=== PATIENT | female | born 1935 | race Caucasian/White ===

== ENCOUNTER 2017-05-20 12:38 | Inpatient (IN) ==
--- NOTE | 2017-05-20 13:09 | Diag Imaging Result Doc PS360 ---
CHEST-PORTABLE - 05/20/2017 INDICATION: weakness TECHNIQUE: COMPARISON: 05/25/2016 FINDINGS: Stable CABG changes and valve replacement changes. Stable cardiomegaly. Pulmonary vascularity is probably somewhat distended. There are some ill-defined, coarse peripheral infiltrates compatible with either pulmonary edema or fibrosis. This has worsened since prior. IMPRESSION: Cardiomegaly. Probable pulmonary edema versus some fibrosis worsened since prior. Electronically signed by Yo Live 05/20/2017 1:07 PM
--- NOTE | 2017-05-20 13:34 | Diag Imaging Result Doc PS360 ---
HEAD/C-SPINE W/O CONTRAST - 05/20/2017 INDICATION: fall, weak, can't walk TECHNIQUE: A CT dose reduction protocol was used. COMPARISON: 05/25/2016 FINDINGS: Head CT: Stable diffuse cerebral atrophy. 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 No intracranial mass or hemorrhage. Stable complete opacification of the left maxillary sinus with chronic sinusitis. Cervical spine: There is reversal of the normal curvature. There is also some mild dextro scoliosis. No visible fracture or subluxation. Vertebral body heights are preserved. There is mild to moderate multilevel disc degeneration. No significant central canal stenosis. IMPRESSION: 1. Stable extensive chronic changes to the brain and chronic left maxillary sinusitis. No acute injury. 2. Cervical spondylosis with no evidence of acute injury to the cervical spine. Electronically signed by Yo Live 05/20/2017 1:32 PM
--- NOTE | 2017-05-20 13:41 | Diag Imaging Result Doc PS360 ---
LUMBAR SPINE W/O CONTRAST - 05/20/2017 INDICATION: weakness, fall, cant walk COMPARISON: None A CT dose reduction protocol was used. FINDINGS: There is an L1 compression fracture, with about 30% loss of height. There is probably also a minimal L4 compression fracture with less than 20% loss of height. No bony retropulsion. No central canal or neural foraminal stenosis. There is extensive multilevel degenerative disc disease with vacuum disc phenomenon. There is advanced vascular calcification of the abdominal aorta and its branches without aneurysm. There is degeneration of the sacroiliac joints as well. IMPRESSION: Mild compression fractures at L1 and L4. Advanced degenerative changes. Electronically signed by Yo Live 05/20/2017 1:38 PM
--- NOTE | 2017-05-20 13:43 | Diag Imaging Result Doc PS360 ---
PELVIS - 05/20/2017 INDICATION: fall, can't walk TECHNIQUE: COMPARISON: None FINDINGS: There is moderate degeneration of the sacroiliac joints. Hip joints are fairly well preserved. No fracture or subluxation. IMPRESSION: No acute disease. Electronically signed by Yo Live 05/20/2017 1:40 PM
--- NOTE | 2017-05-20 14:01 | PROVIDER DOCUMENTATION ---
HPI-General Adult - General Chief Complaint: Weakness Stated Complaint: weakness Time Seen by Provider: 05/20/17 12:40 Source: patient, family Allergies/Adverse Reactions: Patient Allergies Allergy/AdvReac Type Severity Reaction Status Date / Time ciprofloxacin [From Cipro] Allergy ANAPHYLAXIS Verified 05/20/17 13:55 ciprofloxacin HCl * Allergy ANAPHYLAXIS Verified 05/20/17 13:55 [From Cipro] codeine Allergy ANAPHYLAXIS Verified 05/20/17 13:55 Home Medications: Home Medication List Medication Instructions Recorded Confirmed Last Taken Type Amiodarone HCl [Pacerone] 200 mg PO DAILY 05/25/16 05/20/17 05/25/16 History Aspirin [Aspirin EC] 81 mg PO DAILY 05/25/16 05/20/17 05/25/16 History Famotidine [Pepcid] 20 mg PO DAILY 05/25/16 05/20/17 05/25/16 History Iron Carbonyl/Ascorbic Acid 1 each PO DAILY 05/25/16 05/20/17 05/25/16 History [Icar-C] Isosorbide Mononitrate [Isosorbide 30 mg PO DAILY 05/25/16 05/20/17 05/25/16 History Mononitrate ER] Levothyroxine Sodium [Synthroid] 88 mcg PO DAILY 05/25/16 05/20/17 05/25/16 History Metoprolol Tartrate [Lopressor] 100 mg PO BID 05/25/16 05/20/17 05/25/16 History Oxybutynin E.r. [Ditropan Xl] 5 mg PO DAILY 05/25/16 05/20/17 05/25/16 History SIMVAstatin [Zocor] 40 mg PO QHS 05/25/16 05/20/17 05/25/16 History Sertraline [Zoloft] 50 mg PO DAILY 05/25/16 05/20/17 05/25/16 History [place]/Sod Phos/Meth Blue/Hyos 1 each PO TID 05/20/17 05/20/17 Unknown History [Urogesic-Blue Tablet] Sulfamethoxazole/Trimethoprim 1 each PO BID 05/20/17 05/20/17 Unknown History [Bactrim Ds Tablet] - History of Present Illness -Gen Adult Nature of Presenting Problems: pt presents complaining of generalized weakness, inability to ambulate, inability to perform ADLs. She lives at home alone. Reportedly pt fell yesterday but does not recall this. EMS came out but she refused transport. She has no focal complaint. Reportedly, pt was told to drink Gatorade and has been doing this. She denies headache, back pain, leg pain, cp, dyspnea, fever, cough. Location of Pain/Injury: reports: none Pain Radiation: reports: no radiation Quality of Pain: reports: none Onset/Duration: reports: 2 days ago Timing: reports: still present Context/Activities at Onset: reports: none Modifying Factors: improves with: nothing Associated Symptoms: reports: fatigue, weakness, trouble walking. denies: arm pain, chest pain, cough, dizziness, fever/chills, headaches, joint pain, nausea , shortness of breath, pain with inspiration, syncope, vomiting Similar Symptoms Previously?: No Recently seen or treated by another doctor?: No Review of Systems - Adult - REVIEW OF SYSTEMS - ADULT Constitutional: reports: see john BARAHONA Eyes: reports: no symptoms reported Ears, Nose, Mouth & Throat: reports: no symptoms reported Cardiovascular: reports: no symptoms reported Respiratory: reports: no symptoms reported Gastrointestinal: reports: no symptoms reported Genitourinary: reports: no symptoms reported Musculoskeletal: reports: muscle weakness Integumentary: reports: no symptoms reported Neurological: reports: no symptoms reported Psychiatric: reports: no symptoms reported Endocrine: reports: no symptoms reported Hematologic/Lymphatic: reports: no symptoms reported Allergic/Immunologic: reports: no symptoms reported All Other Systems: Reviewed and Negative Past History - Adult - PAST MEDICAL HISTORY-ADULT Review of Records: reports: Old Records Reviewed, Nursing Assessment Review, Medications Reviewed, Social history reviewed & non-contributory. Major Childhood Illnesses: reports: denies history Cardiovascular: reports: A-Fib, CHF, HTN Respiratory: reports: denies history Gastrointestinal: reports: denies history Obstetrical/Gynecological: reports: denies history Genitourinary: reports: denies history Musculoskeletal: reports: denies history Neurological: reports: denies history Psychiatric: reports: depression Endocrine/Immune: reports: Diabetes Other Conditions: reports: denies history - PRIOR SURGERIES/PROCEDURES Surgical/Procedure History: reports: other (valve replacement) - IMMUNIZATION STATUS Childhood Immunizations: See Nurse Assessment Flu Vaccine: See Nurse Assessment - FAMILY HISTORY Family History: reviewed, not pertinent Physical Exam-General - PHYSICAL EXAM-ADULT Initial Vital Signs Reviewed: Yes - CONSTITUTIONAL General Appearance: appears well, alert, no apparent distress - EYES Eyes: PERRL/EOMI, pink conjunctivae - HEAD, EARS, NOSE, MOUTH & THROAT HENMT: normocephalic/atraumatic - NECK Neck: non-tender, full range of motion - RESPIRATORY Respiratory: chest non-tender, lungs clear, decreased breath sounds - CARDIOVASCULAR Cardiovascular: normal peripheral pulses, regular rate, rhythm, other (mild nonpitting to LE) - GASTROINTESTINAL (ABDOMEN) Abdominal Exam: normal bowel sounds, non tender, soft - LYMPHATIC Lymphatic: no adenopathy - MUSCULOSKELETAL Back Exam: normal inspection, no vertebral tenderness Extremity: pedal edema (mild, non-pitting.), other (good heal to disla bilateral but pain in right hip). negative: no calf tenderness Peripheral Pulses: femoral (R): 2+, femoral (L): 2+, dorsalis-pedis (R): 2+, dorsalis-pedis (L): 2+ - SKIN Integumentary: normal color, normal turgor, warm/dry - NEUROLOGIC Neurologic: grossly normal. negative: facial droop, focal weakness - PSYCHIATRIC Psych/Mental Status: normal mood/affect, oriented x 3 Progress - PLAN OF CARE/RESULTS Progress/Plan/Lab Results: Vital Signs - 8 hr 05/20/17 13:00 Pulse Rate 62 Respiratory Rate 16 Blood Pressure 184/86 O2 Sat by Pulse Oximetry 92 L Orders Category Date Time Status Cardiac Monitoring DIRECTED Care 05/20/17 12:54 Active Saline Loc NOW Care 05/20/17 12:54 Active CHEST-PORTABLE [RAD] Stat Exams 05/20/17 12:54 Completed HEAD/C-SPINE W/O CONTRAST [CT] Stat Exams 05/20/17 12:54 Completed LUMBAR SPINE W/O CONTRAST [CT] Stat Exams 05/20/17 12:54 Completed PELVIS [RAD] Stat Exams 05/20/17 13:01 Completed CBC WITH ELECTRONIC DIFF [HEME] Stat Lab 05/20/17 13:52 Results CK PROFILE [SP CHEM] Stat Lab 05/20/17 13:52 Received COMPREHENSIVE METABOLIC PANEL [CHEM] Stat Lab 05/20/17 13:52 Received MAGNESIUM [CHEM] Stat Lab 05/20/17 13:52 Received PRO B-NATRIURETIC PEPTIDE Stat Lab 05/20/17 13:52 Received PROTIME WITH INR [COAG] Stat Lab 05/20/17 13:52 Received PTT [COAG] Stat Lab 05/20/17 13:52 Received TROPONIN T Stat Lab 05/20/17 13:52 Received UA NIMS W/REFLEX CULT [URINALYSIS] Stat Lab 05/20/17 12:54 Uncollected EKG [EKG] Stat Ther 05/20/17 12:54 Ordered case and plan of care discussed with Dr. Encinas. Result Diagrams: 05/20/17 13:52 05/20/17 13:52 - XRAY 1 XRAY Study: Chest Impression: See EMR Report XRAY Interpretation: cardiomegaly c edema vs fibrosis per radiology. 2 XRAY Study: Pelvis Impression: See EMR Report XRAY Interpretation: NAF per radiologist. - CT/MRI 1 CT Study: Head CT Results: NAF per radiologist 2 CT Study: Neck Impression: See EMR Report CT Results: NAF per radiologist. 3 CT Study: Lumbar Spine CT Results: L1/L4 compression fractures per radiologist. - CONSULTS/PCP/HOSPITALIST Notification #1 *Consult/PCP/Hospitalist*: Dr. Torres Time Discussed: 15:21 Consult Disposition: Admit Departure - Departure Date of Disposition Decision: 05/20/17 Time of Disposition Decision: 15:19 DIAGNOSIS: Unable to ambulate, Compression fracture CHF exacerbation Qualifiers: Congestive heart failure type: unspecified congestive heart failure type Qualified Code(s): I50.9 - Heart failure, unspecified Disposition: ADMITTED INPATIENT 09 Certified Medical Emergency: Emergent Condition: Stable Referrals and Follow-Ups: Roman Fiore MD [Primary Care Provider] - - Critical Care Note This patient required my direct & personal management of CC.: No Attestation - Physician/ NISA Attestation Patient care was provided by Advanced Practice Provider:: Yes Advanced Practice Provider:: Rohit Smith Advanced Practice Provider documentation review:: The Mid-level provider documentation, treatment plan and medical decision making was reviewed by the physician who agrees with all treatment and medical decision making by the MLP.
[2017-05-20 14:10] LABS: BASO% 0.2 % (0.0-0.8); EOS# 0.04 X1000 (0.0-0.7); EOS% 0.4 % (0.0-10.0); HEMOGLOBIN 11.9 g/dL (12.0-16.0); LYMPH# 0.73 X1000 (1.2-3.4); LYMPH% 7.3 % (20.5-51.1); MCH 37.2 PG (27-31); MCHC 33.1 g/dL (33-37); MCV 112.5 FL (81-99); MONO# 0.96 X1000 (0.11-0.59); MONO% 9.6 % (1.7-9.3); MPV 11.8 FL (7.4-10.4); NEUT% 82.5 % (42.2-75.2); PLT 234 X1000 (130-400)
[2017-05-20 14:11] LABS: MANUAL DIFF NEEDED? NO
[2017-05-20 14:17] LABS: INR 0.96
[2017-05-20 14:26] LABS: URINE CULTURE NEEDED? NO; URINE MICRO REVIEW NEEDED? NO; URINE SOURCE CLEAN CATCH
[2017-05-20 14:33] LABS: ALBUMIN 4.2 g/dL (3.5-5.0); CALCIUM 9.3 mg/dL (8.8-10.2); POTASSIUM 4.6 mmol/L (3.5-5.1); TOTAL BILIRUBIN 0.73 mg/dL (0.20-1.00); TOTAL PROTEIN 7.1 g/dL (6.3-8.3)
[2017-05-20 14:36] LABS: BILIRUBIN URINE NEGATIVE (NEGATIVE); BLOOD URINE NEGATIVE (NEGATIVE); COLOR GREEN; GLUCOSE URINE NEGATIVE (NEGATIVE); LEUKOCYTES URINE NEGATIVE (NEGATIVE); NITRITE URINE NEGATIVE (NEGATIVE); PH URINE 5.5; PROTEIN URINE NEGATIVE (NEGATIVE); SP GRAVITY URINE 1.011; TURBIDITY URINE CLEAR (CLEAR); UROBILINOGEN URINE NORMAL (NORMAL)
[2017-05-20 14:37] LABS: UR EPITHELIAL CELLS <10 /HPF (<10); URINE BACTERIA NEGATIVE /HPF; URINE RBC <10 /HPF (<10); URINE WBC <10 /HPF (<10)
--- NOTE | 2017-05-20 14:54 | EKG Report ---
Test Performed on : 05/20/2017 1:48:42 PM Test Reason : Chest Pain Blood Pressure : / mmHG Vent. Rate : 069 BPM Atrial Rate : 069 BPM P-R Int : 270 ms QRS Dur : 100 ms QT Int : 448 ms P-R-T Axes : 078 105 -03 degrees QTc Int : 480 ms Sinus rhythm. with 1st degree AV block. Rightward axis Nonspecific ST and T wave abnormality Abnormal ECG When compared with ECG of 25-MAY-2016 21:00, No significant change was found Unconfirmed Result
[2017-05-20 15:08] LABS: CK INDEX 1.9 (0.0-2.5); CK-MB 4.68 ng/mL (0.0-5.0)
[2017-05-20] MEDS ORDERED: LASIX IV ONE (15:17)
[2017-05-20] MEDS ORDERED: ZOFRAN IV PRN (16:02)
--- NOTE | 2017-05-20 18:14 | HISTORY AND PHYSICAL ---
CHIEF COMPLAINT: Lower extremity weakness and shortness of breath with physical activity. HISTORY OF PRESENT ILLNESS: This is an 82-year-old female with a past medical history of coronary artery disease status post CABG, CKD, hypertension, CHF diastolic, possible history of atrial fibrillation, diabetes, chronic UTI, hyperlipidemia, hypothyroidism, osteoarthritis. She came to the emergency department with a chief complaint of severe lower extremity weakness for the past 3 days and shortness of breath with physical activity. As per the patient, 4 days ago she was fine and then she started having lower extremity weakness that was progressive. She denies nausea, vomiting, diarrhea, constipation. No chest pain. No fever. No chills. She had multiple x-rays and also a lumbar CT-spine that showed an L1 and mild compression fracture. Probably this is old. She is not complaining of lumbar spinal pain. She has no history of dementia. Apparently this patient fell yesterday but she is not sure. She lives by herself. Her daughter and one of her friends lives very close to her house. Laboratory shows hemoglobin of 11.9 with MCV of 112. Also, creatinine 1.5 and proBNP of 1369. Back in 2016 it was 2988. This patient will be admitted to the medical floor with telemetry. I will get a new echocardiogram. I will start with gentle diuresis and continue with her home medications. PAST MEDICAL HISTORY: Degenerative joint disease, hypothyroidism, hyperlipidemia, hypertension, chronic UTI, diabetes mellitus type 2, CHF, possible atrial fibrillation, CKD, coronary artery disease status post CABG. PAST SURGICAL HISTORY: CABG and carotid surgery on the right side. SOCIAL HISTORY: She is an ex-smoker. She stopped smoking in 1998. She smoked for 15 years about half pack. She lives alone. She has a feeder 2 times per week. Her her daughter and her friend are checking on her really closely. She denies alcohol or drugs. FAMILY HISTORY: Noncontributory. ALLERGIES: The patient has an allergy to Cipro and codeine, and apparently that causes anaphylaxis but she is not sure. HOME MEDICATIONS: Sertraline 50 mg p.o. daily, simvastatin 40 mg p.o. at bedtime, oxybutynin 5 mg p.o. daily, metoprolol tartrate 100 mg p.o. b.i.d., tablet 1 tablet p.o. t.i.d., levothyroxine 88 mcg p.o. daily, isosorbide mononitrate 30 mg p.o. daily, Icar-C 1 tab p.o. daily, famotidine 20 mg p.o. daily, aspirin 81 mg p.o. daily, amiodarone 200 mg p.o. daily. REVIEW OF SYSTEMS: All 14 point review of systems were reviewed and were negative except as per HPI. PHYSICAL EXAMINATION: VITAL SIGNS: Pulse 62, respiratory rate 16, blood pressure 184/86, oxygen saturation 92 on room air. HEENT: Head normocephalic. No trauma. PERRLA. NECK: Supple. No JVD. No masses. Central trachea. CHEST: Decreased breath sounds at the bases with rales and mild crackles. ABDOMEN: Soft, nontender, nondistended. No hepatosplenomegaly. CARDIOVASCULAR: Regular rate and rhythm. No murmurs. EXTREMITIES: 1+ lower extremity edema. No clubbing. No cyanosis. NEUROLOGICAL EXAMINATION: The patient is alert and oriented x3. No focal neurological deficits. LABORATORY: WBC 10, hemoglobin 11.9, hematocrit 36, platelets 234,000. Sodium 136, potassium 4.6, chloride 103, bicarbonate 20, BUN 16, creatinine 1.5, glucose 100, calcium 9.3, magnesium 2. AST 35, ALT 27, alkaline phosphatase 66, proBNP 11,369, albumin 4.2. Negative urinalysis. ASSESSMENT AND PLAN: 1. Congestive heart failure exacerbation. She already received a dose of Lasix in the ER. I will start this patient with a low dose of Lasix, 20 IV daily. I will monitor the kidney function. Also I will ask for physical therapy for this patient. 2. Hypertension. I will restart this patient on her home medications and I will monitor. 3. Chronic kidney disease. Her creatinine is 1.5 and this is her baseline compared with 2016. 4. Coronary artery disease status post coronary artery bypass graft. Aware. Continue to monitor. No chest pain at this moment. 5. Hyperlipidemia. Continue with the same management. 6. Hypothyroidism. Continue with Synthroid. 7. Type 2 diabetes. I will put this patient on sliding scale insulin and pattern blood sugar. 8. Physical deconditioning. I will consult Physical Therapy for evaluation. cc: Jesus Suarez MD
[2017-05-20] MEDS: LOPRESSOR PO SCH (21:04)
[2017-05-20] MEDS: HEPARIN SUBQ SCH ×2 (21:04→21:06)
[2017-05-20] MEDS: HUMULIN R SUBQ SCH (21:04)
[2017-05-20] MEDS: ZOCOR PO SCH (21:04)
[2017-05-21 06:30] LABS: BASO% 0.1 % (0.0-0.8); EOS# 0.19 X1000 (0.0-0.7); EOS% 2.3 % (0.0-10.0); HEMATOCRIT 33.3 % (37.0-47.0); HEMOGLOBIN 10.9 g/dL (12.0-16.0); IMM GRAN# 0.02 X1000 (0.0-0.04); IMM GRAN% 0.2 % (0.0-0.5); LYMPH# 0.65 X1000 (1.2-3.4); LYMPH% 7.7 % (20.5-51.1); MANUAL DIFF NEEDED? YES; MCH 36.3 PG (27-31); MCHC 32.7 g/dL (33-37); MONO# 1.06 X1000 (0.11-0.59); MONO% 12.6 % (1.7-9.3); MPV 11.7 FL (7.4-10.4); NEUT% 77.1 % (42.2-75.2); PLT 209 X1000 (130-400)
[2017-05-21 06:39] LABS: ALBUMIN 3.5 g/dL (3.5-5.0); CALCIUM 8.9 mg/dL (8.8-10.2); POTASSIUM 4.7 mmol/L (3.5-5.1); TOTAL BILIRUBIN 0.55 mg/dL (0.20-1.00)
[2017-05-21] MEDS: HUMULIN R SUBQ SCH ×4 (07:43→21:44)
[2017-05-21 07:54] LABS: BANDS 10 % (0-1); LYMPHS 4 % (21-51); MONO 6 % (1-9); NRBC 1 % (0-0)
[2017-05-21] MEDS: ICAR-C PO SCH (08:33)
[2017-05-21] MEDS: DITROPAN XL PO SCH (08:33)
[2017-05-21] MEDS: LOPRESSOR PO SCH ×2 (08:34→21:44)
[2017-05-21] MEDS: SYNTHROID PO SCH (08:34)
[2017-05-21] MEDS: IMDUR PO SCH (08:34)
[2017-05-21] MEDS: ZOLOFT PO SCH (08:34)
[2017-05-21] MEDS: CORDARONE PO SCH (08:34)
[2017-05-21] MEDS: HEPARIN SUBQ SCH ×2 (08:34→21:44)
[2017-05-21] MEDS: ASPIRIN EC PO SCH (08:34)
[2017-05-21] MEDS: PEPCID PO SCH (08:34)
[2017-05-21] MEDS ORDERED: LASIX IV SCH (09:00)
--- NOTE | 2017-05-21 11:21 | PROGRESS NOTE ---
DATE: 05/21/2017 SUBJECTIVE: The patient reports she is feeling some improved since admission regarding her shortness of breath. She denies any additional symptoms or overnight complaints. OBJECTIVE: Vital Signs: Temperature 98.3 degrees, pulse 60, respirations 18, blood pressure 109/60, O2 saturation 96% on 4L per nasal cannula. HEENT: Normocephalic, atraumatic. Mucous membranes slightly moist. Neck: Supple. No JVD. Chest: Bilateral breath sounds with mild crackles in the bases. Otherwise, normal. No accessory muscle use noted. Cardiovascular: Normal S1 and S2. Abdomen: Soft, nontender, nondistended. Positive bowel sounds. Extremities: Trace amount of edema. Neurologic: Patient is alert and oriented x4. No neurological deficits noted. LABORATORIES AND DIAGNOSTICS: CBC: Her hemoglobin and hematocrit are 10.9 and 33.3, slightly lower than on admission. BMP: Sodium 144, potassium 4.7, chloride 109, CO2 of 22, BUN 17, creatinine 1.5. I's and O's: In the last 24 hours, she has had 1100 output with [address] orders for daily weights. ASSESSMENT AND PLAN: 1. Congestive heart failure exacerbation. With her history of chronic kidney disease, she is on low-dose Lasix IV daily that we have been initiated and will continue with diuresis. She does seem to be slightly improved since admission. We will continue to follow her kidney function, as well, and daily weights as well as strict I and O evaluation. Discussed with the patient also sodium restriction and fluid restriction. 2. Anemia. Have placed an anemia panel to evaluate for causes. This could be related to her chronic kidney disease, however. 3. Hypertension. Stable. We will continue to follow and continue her home medications. 4. Chronic kidney disease. We will continue to follow and appears to be at baseline, but will watch closely with diuresis. 5. Coronary artery disease, status post coronary artery bypass graft. Aware. We will continue to monitor. She is asymptomatic regarding this. We will continue her home medications. 6. Hyperlipidemia. We will continue her medications. 7. Hypothyroidism. Stable. Continue Synthroid. 8. Type 2 diabetes. This is stable. We will continue pattern blood sugars and sliding scale insulin. 9. Physical deconditioning. Physical Therapy has been consulted. Further orders pending physician evaluation. Dictated by ATIF Gao for Jesus Suarez MD cc: ATIF Gao MD
--- NOTE | 2017-05-21 13:48 | ECHO REPORT ---
ORDER DATE: 05/20/2017 INDICATIONS: Fatigue, weakness, CHF. FINDINGS: 1. Right atrium is moderately enlarged at 5.2 cm. 2. Mild tricuspid regurgitation. RV systolic pressure of 62, suggesting pulmonary hypertension. 3. The right ventricle does appear to be somewhat enlarged with mild reduction in RV systolic function. 4. Mild pulmonic insufficiency. 5. Moderate left atrial enlargement at 5.1 cm. 6. There is a moderate amount of mitral annular calcification with no evidence of mitral valve prolapse. Mild mitral regurgitation. 7. Normal LV size, end-diastolic dimension of 4 cm. There is bordering on moderate to severe left ventricular hypertrophy. Posterior wall thickness appears to be 1.7 cm with an interventricular septal wall thickness of 1.3 cm. Normal LV systolic function with a calculated EF of 64%. 8. Aortic valve opens well. It is trileaflet. No evidence of stenosis or significant insufficiency. 9. Aorta appears normal in visualized segments. 10. No pericardial effusion seen. cc: MD Jesus Galicia MD
[2017-05-21] MEDS: TYLENOL PO PRN (17:15)
[2017-05-21] MEDS: ZOCOR PO SCH (21:44)
[2017-05-22 06:40] LABS: HEMATOCRIT 33.2 % (37.0-47.0); HEMOGLOBIN 10.7 g/dL (12.0-16.0); MCH 37.2 PG (27-31); MCHC 32.2 g/dL (33-37); MCV 115.3 FL (81-99); MPV 11.7 FL (7.4-10.4); RBC 2.88 XMIL (4.2-5.4)
[2017-05-22 06:56] LABS: CALCIUM 8.8 mg/dL (8.8-10.2); POTASSIUM 4.5 mmol/L (3.5-5.1)
[2017-05-22 07:07] LABS: FERRITIN 373 ng/mL (13-150)
[2017-05-22] MEDS: HUMULIN R SUBQ SCH ×4 (07:33→20:36)
[2017-05-22] MEDS: CORDARONE PO SCH (10:25)
[2017-05-22] MEDS: ICAR-C PO SCH (10:25)
[2017-05-22] MEDS: PEPCID PO SCH (10:25)
[2017-05-22] MEDS: DITROPAN XL PO SCH (10:25)
[2017-05-22] MEDS: SYNTHROID PO SCH (10:25)
[2017-05-22] MEDS: ZOLOFT PO SCH (10:26)
[2017-05-22] MEDS: IMDUR PO SCH (10:26)
[2017-05-22] MEDS: ASPIRIN EC PO SCH (10:26)
[2017-05-22] MEDS: LOPRESSOR PO SCH ×2 (10:26→22:20)
[2017-05-22] MEDS: HEPARIN SUBQ SCH ×2 (10:26→22:20)
[2017-05-22] MEDS: FOLIC ACID PO SCH (10:28)
[2017-05-22] MEDS: LASIX PO SCH (10:29)
--- NOTE | 2017-05-22 11:57 | PROGRESS NOTE ---
DATE: 05/22/2017 SUBJECTIVE: Patient reports continued weakness. She denies any other complaints or symptoms today. OBJECTIVE: Vital Signs: Temperature 97.8 degrees, pulse 56, respirations 16, blood pressure 153/48, O2 saturation 96% on 2 L per nasal cannula. HEENT: Normocephalic, atraumatic. Mucous membranes slightly moist. Neck: Supple. No JVD. Chest: Bilateral breath sounds clear. Respirations unlabored. No accessory muscle use noted. Cardiovascular: Normal S1 and S2. Abdomen: Abdomen is soft, nontender, nondistended. Positive bowel sounds. Extremities: Trace amount of edema. Neurologic: The patient is alert and oriented x4. No neurological deficits noted. Laboratories and Diagnostics: CBC: Hemoglobin and hematocrit are 10.7 and 33.2 today. BMP: Sodium 138, potassium 4.5, chloride 104, CO2 23, BUN 21, creatinine 1.9, glucose 108. With her anemia panel, her iron was within normal limits, her folate was low at 5.5, and her B12 was 576. ProBNP was 2258, which is improved from prior. ASSESSMENT AND PLAN: 1. Congestive heart failure exacerbation. With her history of chronic kidney disease and improvement of her proBNP and symptoms, we will switch patient from intravenous Lasix to oral, and continue to follow. She has been improving with this and feels she will likely be appropriate to go to rehab soon. 2. Folate deficiency anemia. We will go ahead and initiate folate with her medications. 3. Hypertension. This is stable. 4. Chronic kidney disease. We have been following this with diuresis. Her creatinine has increased slightly today. We will go ahead and switch her to oral Lasix instead of intravenous. 5. Coronary artery disease, status post coronary artery bypass graft. Aware. She is asymptomatic regarding this. 6. Type 2 diabetes. This is stable. 7. Physical deconditioning. Physical therapy has been consulted. Spoke with the patient in detail today about possibly going to rehab. The patient had questions regarding this but does also feel this would help improve her weakness and get her back to her preadmission activity level. 8. Discharge planning. Feel patient would probably be appropriate for discharge possibly tomorrow if can work out with rehab a bed for her and if her conditions continued to improve. She may also need home health long-term. Further orders pending physician evaluation. Dictated by ATIF Gao for Jesus Suarez MD cc: ATIF Gao MD
[2017-05-22] MEDS: TYLENOL PO PRN (15:48)
[2017-05-22] MEDS: ZOCOR PO SCH (22:20)
[2017-05-23] MEDS: HUMULIN R SUBQ SCH ×4 (06:36→21:29)
[2017-05-23 06:56] LABS: HEMATOCRIT 34.1 % (37.0-47.0); HEMOGLOBIN 11.1 g/dL (12.0-16.0); MCH 36.5 PG (27-31); MCHC 32.6 g/dL (33-37); MCV 112.2 FL (81-99); MPV 11.8 FL (7.4-10.4); RBC 3.04 XMIL (4.2-5.4)
[2017-05-23 07:16] LABS: CALCIUM 9.2 mg/dL (8.8-10.2); POTASSIUM 4.6 mmol/L (3.5-5.1)
[2017-05-23] MEDS: ASPIRIN EC PO SCH (08:24)
[2017-05-23] MEDS: PEPCID PO SCH (08:24)
[2017-05-23] MEDS: CORDARONE PO SCH (08:24)
[2017-05-23] MEDS: IMDUR PO SCH (08:24)
[2017-05-23] MEDS: SYNTHROID PO SCH (08:24)
[2017-05-23] MEDS: LOPRESSOR PO SCH ×2 (08:24→20:11)
[2017-05-23] MEDS: LASIX PO SCH (08:24)
[2017-05-23] MEDS: ICAR-C PO SCH (08:24)
[2017-05-23] MEDS: HEPARIN SUBQ SCH ×2 (08:25→20:09)
[2017-05-23] MEDS: FOLIC ACID PO SCH (08:25)
[2017-05-23] MEDS: DITROPAN XL PO SCH (08:25)
[2017-05-23] MEDS: ZOLOFT PO SCH (08:26)
--- NOTE | 2017-05-23 09:55 | EKG Report ---
Test Performed on : 05/20/2017 5:46:48 PM Test Reason : ED. Not ordered in [place] Blood Pressure : / mmHG Vent. Rate : 066 BPM Atrial Rate : 066 BPM P-R Int : 258 ms QRS Dur : 106 ms QT Int : 478 ms P-R-T Axes : 071 091 023 degrees QTc Int : 501 ms Sinus rhythm. with 1st degree AV block. Rightward axis Prolonged QT Abnormal ECG When compared with ECG of 20-MAY-2017 13:48, (Unconfirmed) No significant change was found Unconfirmed Result
--- NOTE | 2017-05-23 09:55 | PROGRESS NOTE ---
DATE: 05/23/2017 SUBJECTIVE: This patient states that she is feeling much better. She is still reporting weakness. She denies any other symptoms. OBJECTIVE: Vital Signs: Temperature 97.5 degrees, pulse 56, respiratory rate 16, blood pressure 128/46. Oxygen saturation 99 on room air. HEENT: Head normocephalic. No trauma. PERRLA. Neck: Supple. No JVD. No masses. Central trachea. Chest: Clear to auscultation. No wheezing. No rales. Abdomen: Soft, nontender, nondistended. No hepatosplenomegaly. Extremities: Trace edema. No clubbing. No cyanosis. Neurological Examination: The patient is alert and oriented x3. No focal deficits. Laboratory: WBC 6.7, hemoglobin 11.1, hematocrit 34.1, platelets 218,000. Sodium 141, potassium 4.6, chloride 103, bicarbonate 26, BUN 22, creatinine 1.5, glucose 103, calcium 9.2. ASSESSMENT AND PLAN: 1. Congestive heart failure exacerbation. I switched the intravenous Lasix to oral Lasix yesterday. The kidney function is stable. She is still improving. I do believe this patient can be discharged but she needs to go to a rehab center. I already talked to the patient and she agreed with this. She is 82 years old and she lives alone. 2. Macrocytic anemia, likely secondary to folate deficiency. These was initiated yesterday as well. 3. Hypertension, stable. 4. Chronic kidney disease. This is her baseline. Continue with the same management. 5. Coronary artery disease, status post coronary artery bypass graft. Aware. She is asymptomatic regarding this. 6. Type 2 diabetes, stable. 7. Physical deconditioning. Physical therapy on board. I already talked to the patient and she is going to a rehab center once this is available. cc: Jesus Suarez MD
[2017-05-23] MEDS: ZOCOR PO SCH (20:11)
[2017-05-24 06:54] LABS: CALCIUM 8.5 mg/dL (8.8-10.2); POTASSIUM 4.6 mmol/L (3.5-5.1)
[2017-05-24] MEDS: HUMULIN R SUBQ SCH ×4 (07:49→21:45)
[2017-05-24] MEDS: ZOLOFT PO SCH (08:48)
[2017-05-24] MEDS: DITROPAN XL PO SCH (08:48)
[2017-05-24] MEDS: SYNTHROID PO SCH (08:48)
[2017-05-24] MEDS: PEPCID PO SCH (08:48)
[2017-05-24] MEDS: ICAR-C PO SCH (08:48)
[2017-05-24] MEDS: ASPIRIN EC PO SCH (08:48)
[2017-05-24] MEDS: CORDARONE PO SCH (08:49)
[2017-05-24] MEDS: FOLIC ACID PO SCH (08:49)
[2017-05-24] MEDS: IMDUR PO SCH (08:49)
[2017-05-24] MEDS: LOPRESSOR PO SCH ×2 (08:49→20:02)
[2017-05-24] MEDS: LASIX PO SCH (08:49)
[2017-05-24] MEDS: HEPARIN SUBQ SCH ×3 (08:49→20:01)
[2017-05-24] MEDS ORDERED: BLISTEX MEDICATED BERRY LIP BALM TOP PRN (11:24)
--- NOTE | 2017-05-24 15:15 | PROGRESS NOTE ---
DATE: 05/24/2017 SUBJECTIVE: This patient states that she is feeling much better. She is still reporting weakness. No acute events overnight. OBJECTIVE: Vital Signs: Temperature 98 degrees, pulse 58, respiratory rate 15, blood pressure 132/48, oxygen saturation 95% on 2 L of nasal cannula. HEENT: Head normocephalic. No trauma. PERRLA. Neck: Supple. No JVD. No masses. Central trachea. Chest: Clear to auscultation. No wheezing. No rales. Abdomen: Soft, nontender, nondistended. No hepatosplenomegaly. Extremities: No edema. No clubbing. No cyanosis. Neurological: The patient is alert and oriented x3. No focal deficits. LABORATORY: Sodium 141, potassium 4.6, chloride 106, bicarbonate 24, BUN 26, creatinine 1.2, glucose 120, calcium 8.5. ASSESSMENT AND PLAN: 1. Congestive heart failure exacerbation, likely diastolic in a patient with pulmonary hypertension. Continue with Lasix low dose daily. She is ready to be discharged. We are waiting for placement because this patient is weak. 2. Macrocytic anemia. Likely secondary to folate deficiency. Folic acid was initiated a couple days ago. We will continue to monitor. 3. Hypertension, stable. 4. Chronic kidney disease. This is her baseline. Continue with the same management. 5. Coronary artery disease status post coronary artery bypass graft, aware. She is asymptomatic regarding this. 6. Type 2 diabetes. Stable. 7. Physical deconditioning. Physical therapy is on board. I already talked to the patient and she is going to a rehab center once this is available. cc: Jesus Suarez MD
[2017-05-24] MEDS: TEARISOL OPH SOLUTION BOTH EYES SCH ×3 (17:34→20:03)
[2017-05-24] MEDS: TYLENOL PO PRN (20:02)
[2017-05-24] MEDS: ZOCOR PO SCH (20:02)
[2017-05-25 06:13] VITALS: BP 125/41
[2017-05-25] MEDS: HUMULIN R SUBQ SCH ×2 (06:16→11:34)
[2017-05-25] MEDS: HEPARIN SUBQ SCH ×2 (09:58→10:07)
[2017-05-25] MEDS: DITROPAN XL PO SCH (09:59)
[2017-05-25] MEDS: LOPRESSOR PO SCH (09:59)
[2017-05-25] MEDS: LASIX PO SCH (09:59)
[2017-05-25] MEDS: ICAR-C PO SCH (09:59)
[2017-05-25] MEDS: IMDUR PO SCH (09:59)
[2017-05-25] MEDS: ZOLOFT PO SCH (09:59)
[2017-05-25] MEDS: CORDARONE PO SCH (09:59)
[2017-05-25] MEDS: FOLIC ACID PO SCH (09:59)
[2017-05-25] MEDS: ASPIRIN EC PO SCH (09:59)
[2017-05-25] MEDS: SYNTHROID PO SCH (09:59)
[2017-05-25] MEDS: PEPCID PO SCH (09:59)
[2017-05-25] MEDS: TEARISOL OPH SOLUTION BOTH EYES SCH ×2 (10:00→14:16)
--- NOTE | 2017-05-25 11:06 | DISCHARGE SUMMARY ---
ADMISSION DATE: 05/20/2017 DISCHARGE DATE: 05/25/2017 CONSULTATIONS: None. PERTINENT PROCEDURES: 1. Cervical spine CT showed stable extensive chronic changes to the brain and chronic left maxillary sinusitis. No acute injury. Cervical spondylosis with no evidence of acute injury to the cervical spine. 2. Echocardiogram showed an EF of 64%. 3. Hip/pelvis x-ray showed no acute disease. 4. Lumbar spine CT showed mild compression fractures at the L1 and L4 with advanced degenerative changes. DISCHARGE DIAGNOSES: 1. Congestive diastolic heart failure exacerbation with pulmonary hypertension. Improved. 2. Microcytic anemia secondary to folate deficiency. Continue with folic acid. 3. Hypertension, stable. 4. Chronic kidney disease. The patient is at her baseline. 5. Coronary artery disease status post coronary artery bypass graft, aware and stable. 6. Type 2 diabetes. Stable. 7. Physical deconditioning. Patient is being discharged to rehabilitation. HOSPITAL COURSE: Ms. Martin is an 82-year-old female, who has had a past medical history of coronary artery disease status post CABG, CKD, hypertension, CHF diastolic, diabetes mellitus, chronic UTI, hyperlipidemia, hypothyroidism, osteoarthritis, who came to the ED with a chief complaint of severe lower extremity weakness for 3 days, shortness of breath with physical activity. Laboratory data showed a hemoglobin of 11, MCV of 112, creatinine 1.5, a proBNP of 1369. She was admitted for diastolic congestive heart failure exacerbation and started on gentle diuresis and continued on her home medications. She was placed on daily weights, as well as strict I's and O's and discussed education about sodium restriction and fluid restriction. Physical therapy was consulted for her physical deconditioning. They suggested rehabilitation. The patient was switched from IV to p.o. Lasix. Her shortness of breath has greatly improved. However, she still reports weakness. She will be discharged to rehab today. VITAL SIGNS: Temperature is 97.7 degrees, heart rate 50, respirations 16, blood pressure 125/41 and O2 is 96%. DISCHARGE DIET: Diabetic. DISCHARGE MEDICATIONS: As per Dr. Torres. Please see MAR. FOLLOWUP: The patient is being discharged to [facility], where she will continue with daily weights and strict I's and O's. I also educated the patient on sodium restriction, as well as fluid restriction in relation to her heart failure. The patient can return to the ED for any worsening of symptoms. DISCHARGE TIME: 30 minutes. Dictated by ATIF Skinner for Jesus Suarez MD cc: MD Roman Chandler MD
== END 2017-05-25 14:36 ==
LOC: SUPCPDRO → ED 12:38 → 3N 18:25
PROVIDERS: ATTEND Internal Medicine